=== PATIENT | male | born 1940 | race Caucasian/White ===

== ENCOUNTER → 2017-08-24 08:56 | Outpatient (CLI) | payer MEDICARE, SELFPAY ==
[2017-08-24 10:28] LABS: PSA,Total- Diagnostic 4.08 ng/mL (0.0-4.0)
== END ==
PROVIDERS: Family Provider Family Medicine; PCP Family Medicine; Visit Provider Nurse Practitioner Adult Health
DX: R97.20 Elevated prostate specific antigen [PSA] (principal)
CPT/HCPCS: 36415; 84153

== ENCOUNTER 2018-08-09 21:01 | Emergency (ER) | payer MEDICARE, SELFPAY ==
[2018-08-09 21:02] VITALS: BP 158/74; PULSE 78; RESP 16; TEMP 36.8; O2SAT 96; BMI 25.8
[2018-08-09 21:38] LABS: Absolute Lymphocyte Count 2.01 X10^3/ul (0.83-4.51); Absolute Neutrophil Count 2.6 X10^3/uL (2.0-7.7); Basophil# 0.03 X10^3/uL; Basophil% 0.5 % (0-1); Eosinophils% 1.7 % (0-5); Hematocrit 41.9 % (40-54); Lymphocyte # 2.01 X10^3/ul (4.0); Lymphocyte % 35.1 % (19-41); Mean Corp Hgb Conc 33.4 g/gl (32-36); Mean Corpuscular Hgb 29.7 pg (27.0-32.0); Mean Corpuscular Volume 88.8 fL (80-94); Mean Platelet Vol. 9.4 fl (6.2-12.0); Monocyte# 1.01 X10^3/uL; Monocyte% 17.7 % (0-10); Neutrophil # 2.57 X10^3/uL (2.7-7.7); Platelet Count 245 K/mm3 (150-450); RBC Distribution Width SD 42.3 fl (35.1-43.9); Red Blood Count 4.72 M/mm3 (4.6-6.2); White Blood Count 5.7 K/mm3 (4.4-11.0)
[2018-08-09 21:39] LABS: POSITIVE COUNT NO; POSITIVE DIFFERENTIAL NO; POSITIVE MORPHOLOGY NO
[2018-08-09 21:44] LABS: Partial Thromboplast Time 29.1 Seconds (24.1-36.2)
[2018-08-09 21:53] LABS: Anion Gap 6 (5-15); BUN 15 mg/dL (7-18); BUN/Creat Ratio 16.4 RATIO (10-20); Calcium,Total 8.4 mg/dL (8.5-10.1); Chloride 107 mmol/L (98-107); Creatinine, Serum 0.92 mg/dL (0.70-1.30); EST Glomerular Filtration Rate 85 mL/min (>60); Est Glom Filt Rate - Afr Amer 103 mL/min (>60); Estimated Creatinine Clearance 69.43 ml/min; Glucose 98 mg/dL (74-106); Potassium 3.8 mmol/L (3.5-5.1); Sodium Level 140 mmol/L (136-145)
[2018-08-09 22:20] LABS: Bacteria 0 SEEN /hpf (None Seen); Mucous, Urine 0 SEEN /hpf (<or=2+); Squamous Epithelial Cells - UA 0 SEEN /hpf (0-5)
[2018-08-09 22:38] LABS: Color, Urine Red (Yellow); Glucose, Dipstick Normal (Normal); Ketone-Dipstick Negative (Negative); Leukocyte Esterase-Dipstick Negative /ul (Negative); Nitrite-Dipstick Negative (Negative); Occult Blood-Urine 250 /ul (Negative); Protein-Dipstick 500 mg/dl (Negative); Urine Bilirubin Dipstick Negative (Negative); Urine Clarity Turbid (Clear); Urine Urobilinogen Normal (Normal)
[2018-08-09 22:53] LABS: White Blood Cells 25-50 SEEN /hpf (0-5)
[2018-08-09 22:54] LABS: Red Blood Cells-Urine > 100 SEEN /hpf (0-5)
[2018-08-09 23:26] VITALS: BP 153/104; PULSE 71; RESP 16; O2SAT 96
--- NOTE | 2018-08-10 01:02 | ED.VISSUMM ---
- ER Visit Summary Date of Service: 08/10/18 Chief Complaint: Blood in urine History of Present Illness: The patient is a 77 M with blood in his urine that has been going on for couple days. Worse today. Bright red blood and clots were noted. He believes he is retaining urine and has some lower abdominal pain. Denies any other symptoms. No GI symptoms. No fevers. He had these symptoms years ago and was told it was his prostate. He did have irrigation and the bleeding cleared. He used to see Dr. Arthur, but does not have a current urologist. He has a history of BPH and did have a TURP about 20 years ago. He denies blood thinner use. Physical Examination: Afebrile and vital signs unremarkable. Abdomen soft and nontender. Skin appears normal without pallor. Test Results: CBC normal. Metabolic panel normal. Coags normal. Urinalysis shows blood, 25-50 white cells and greater than 100 RBCs. Urine culture is pending. Emergency Department Course and Treatment: Three-way catheter was placed. He had continuous irrigation. He continued to pass blood and clots. Urology is not available at this facility today for consultation. I believe he needs to see a urologist tonight for continued irrigation and further care. I do not believe he is appropriate for outpatient management. At the time of this dictation, he is awaiting transfer to an appropriate facility. Treatment Plan: As above Disposition: Transfer Impression: 1. Hematuria 2. Acute urinary retention This note was generated with [employer] dictation software. It may contain incorrect words, spelling, and punctuation that were not noted in review of the chart prior to signing ED Disposition - Plan for ED Patient: Referrals: Volodymyr Salgado DO [Primary Care Provider] -
--- NOTE | 2018-08-10 01:05 | ED.DCSUM_ITS ---
- ER Visit Summary Date of Service: 08/10/18 Chief Complaint: Blood in urine History of Present Illness: The patient is a 77 M with blood in his urine that has been going on for couple days. Worse today. Bright red blood and clots were noted. He believes he is retaining urine and has some lower abdominal pain. Denies any other symptoms. No GI symptoms. No fevers. He had these symptoms years ago and was told it was his prostate. He did have irrigation and the bleeding cleared. He used to see Dr. Arthur, but does not have a current urologist. He has a history of BPH and did have a TURP about 20 years ago. He denies blood thinner use. Physical Examination: Afebrile and vital signs unremarkable. Abdomen soft and nontender. Skin appears normal without pallor. Test Results: CBC normal. Metabolic panel normal. Coags normal. Urinalysis shows blood, 25-50 white cells and greater than 100 RBCs. Urine culture is pending. Emergency Department Course and Treatment: Three-way catheter was placed. He h ad continuous irrigation. He continued to pass blood and clots. Urology is not available at this facility today for consultation. I believe he needs to see a urologist tonight for continued irrigation and further care. I do not believe he is appropriate for outpatient management. At the time of this dictation, he is awaiting transfer to an appropriate facility. Treatment Plan: As above Disposition: Transfer Impression: 1. Hematuria 2. Acute urinary retention This note was generated with [employer] dictation software. It may contain incorrect words, spelling, and punctuation that were not noted in review of the chart prior to signing ED Disposition - Plan for ED Patient: Referrals: Volodymyr Salgado DO [Primary Care Provider] -
[2018-08-10 02:42] VITALS: BP 161/98; PULSE 76; RESP 16; O2SAT 97
== END 2018-08-10 03:50 | disposition short-term general hospital (02) ==
PROVIDERS: Emergency Provider Emergency Medicine; Family Provider Family Medicine; PCP Family Medicine
DX: R31.9 Hematuria, unspecified (principal); N40.1 Benign prostatic hyperplasia with lower urinary tract symptoms; R33.8 Other retention of urine; R35.0 Frequency of micturition; R10.30 Lower abdominal pain, unspecified; Z79.899 Other long term (current) drug therapy
CPT/HCPCS: 80048; 81001; 85025; 85610; 85730; 87086; 99284; A4216

== ENCOUNTER → 2020-02-26 09:24 | Outpatient (CLI) | payer MEDICARE, SELFPAY ==
[2020-02-26 13:26] LABS: Anion Gap 4 (5-15); BUN 14 mg/dL (7-18); BUN/Creat Ratio 13.7 RATIO (10-20); Calcium,Total 9.4 mg/dL (8.5-10.1); Chloride 109 mmol/L (98-107); Cholesterol 230 mg/dL (200); Creatinine, Serum 1.02 mg/dL (0.70-1.30); EST Glomerular Filtration Rate 75 mL/min (>60); Est Glom Filt Rate - Afr Amer 91 mL/min (>60); Glucose 101 mg/dL (74-106); High Density Lipoprotein 48 mg/dL; Potassium 4.2 mmol/L (3.5-5.1); Sodium Level 140 mmol/L (136-145); Triglycerides 150 mg/dL; Very Low Density Lipoprotein 30 mg/dL (5-40)
[2020-02-26 17:12] LABS: PSA,Total- Diagnostic 3.49 ng/mL (0.0-4.0)
== END ==
PROVIDERS: PCP Student in an Organized Health Care Education/Training Program; Referring Provider Student in an Organized Health Care Education/Training Program; Visit Provider Student in an Organized Health Care Education/Training Program
DX: R97.20 Elevated prostate specific antigen [PSA] (principal); Z13.6 Encounter for screening for cardiovascular disorders
CPT/HCPCS: 36415; 80048; 80061; 84153; G0103

== ENCOUNTER 2020-03-24 20:08 | Emergency (ER) | payer MEDICARE, SELFPAY ==
[2020-03-24 20:09] VITALS: BP 177/96; PULSE 102; RESP 18; TEMP 35.3; O2SAT 98; BMI 27.1
--- NOTE | 2020-03-24 23:08 | ED.VIS.GEN ---
History of Present Illness Chief Complaint: Constipation Narrative: This patient is a 79-year-old male who presents with constipation and urinary retention. He had a small hard stool yesterday. He has felt like he needed to have a bowel movement today but was unable to go. He was also unable to urinate. Patient urinated after arrival here to the emergency department prior to my evaluation. He complains of some lower abdominal discomfort no pain. No fevers. No nausea or vomiting. No history of prior similar symptoms. Past Medical History - Allergies and Home Meds Allergies/Adverse Reactions: Allergies tetanus and diphtheria toxoids Allergy (Verified 08/09/18 21:05) Swelling Primary Care Physician: Darryl Mckee DO [Primary Care Provider] - Past Medical History: - - BPH Smoking Status: Former smoker Review of Systems All systems negative except as indicated General: Denies: Fever Eyes: Denies: Visual changes - bilaterally Cardiovascular: Denies: Chest pain Respiratory: Denies: Cough Gastrointestinal: Reports: Constipation. Denies: Nausea, Vomiting Musculoskeletal: Denies: Myalgias, Arthralgias Skin: Denies: Rash Neurological: Denies: Headache Physical Exam Vital Signs/Narrative: Vital Signs Temp Pulse Resp BP Pulse Ox 03/24/20 20:09 95.5 F L 102 H 18 177/96 H 98 Inital Vital Signs reviewed: Yes General: Well nourished Head: Normocephalic Eyes: EOMI ENT: Moist mucous membranes Neck: Supple Cardiovascular: Regular rate Respiratory: No distress Abdomen: Soft, Nontender, Nondistended Rectal: - - Patient has a large fecal impaction on digital rectal exam Skin: Normal color Neurological: Alert Psychological: Normal affect Diagnostic/Tx/Re-eval - Medical Decision Making A Urojet was used for comfort during manual disimpaction. Large amount of hard impacted stool was manually disimpacted. Patient was given an enema. He was advised to use a stool softener such as MiraLAX at home. He understands to return for new or worsening symptoms otherwise to follow-up with his primary care physician and he was discharged home. ED Disposition - Plan for ED Patient: Disposition: Home or Assisted Living Diagnosis: Fecal impaction Instructions: ED Fecal Impaction, Treated Referrals: Darryl Mckee DO [Primary Care Provider] - Additional Instructions: I would recommend that you start a stool softener such as MiraLAX.
[2020-03-24] MEDS: Lidocaine Jelly 2% 20 ML Syringe (URO-JET) 20 APPLIC TOPICAL (23:17)
[2020-03-24] MEDS: Fleet Enema 1 ML RECTAL (23:18)
== END 2020-03-25 00:07 | disposition home or self-care (01) ==
PROVIDERS: Emergency Provider Emergency Medicine; PCP Student in an Organized Health Care Education/Training Program
DX: K56.41 Fecal impaction (principal); N40.1 Benign prostatic hyperplasia with lower urinary tract symptoms; R33.8 Other retention of urine; Z87.891 Personal history of nicotine dependence
CPT/HCPCS: 99283

== ENCOUNTER 2020-06-11 09:40 | Emergency (ER) | payer MEDICARE, SELFPAY ==
[2020-06-11 09:41] VITALS: BP 182/80; PULSE 74; RESP 16; TEMP 35.7; O2SAT 98; BMI 26.4
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
== END 2020-06-11 10:29 | disposition home or self-care (01) ==
PROVIDERS: Emergency Provider Emergency Medicine; PCP Student in an Organized Health Care Education/Training Program
DX: S29.012A Strain of muscle and tendon of back wall of thorax, initial encounter (principal); V43.52XA Car driver injured in collision with other type car in traffic accident, initial encounter; Y93.9 Activity, unspecified; Y92.9 Unspecified place or not applicable; N40.0 Benign prostatic hyperplasia without lower urinary tract symptoms; Z79.899 Other long term (current) drug therapy; Z87.891 Personal history of nicotine dependence
CPT/HCPCS: 99282

== ENCOUNTER 2020-10-21 23:31 | Observation (INO) | payer MEDICARE, SELFPAY ==
[2020-10-21 23:32] VITALS: BP 161/90; PULSE 91; RESP 18; TEMP 36.7; O2SAT 97; BMI 27.3
[2020-10-22] VITALS (17 sets, daily range): BP systolic 92–169; BP diastolic 54–90; PULSE 70–91; RESP 16–18; TEMP 36.1–36.8; O2SAT 92–100; BMI 27.0
--- NOTE | 2020-10-22 | PROS_PTH ---
PATIENT: RONEN CHOW LOC: [facility] U#:[id number] AGE/SX: 80/M ROOM: [facility] RE10/22/[address]: Dr. Delbert Abrams DO : 1940 BED: 1 DIS: 10/23/2020 SPEC #: [id number] RECD: 10/22/20 14:01 STATUS: ELIZABETH BECK #: [id number] SHIVAM: 10/22/20 00:[address]: Quang Haynes DEPT: SURGICAL PATHOLOGY RECD BY: Kam Person ENTERED: 10/23/20 09:01 SP TYPE: TURP OTHR DR: MD Dr. Quang Mays MD Dr. Michael Halko, DO Dr. Mark Tereletsky, DO Tissues: Prostate, NOS Procedures: Surgery Specimen Level IV Comments: @ Ordering doctor for SUIV edited from to @ by DAWSON at 10/23/20 1002 @ Submitting doctor edited from to @ by DAWSON at 10/23/20 1002 HEADER OPERATION: Cysto, evacuation clots, TURP PRE-OP DIAGNOSIS: Urinary retention and hematuria TISSUE SUBMITTED: Prostate chips MICROSCOPIC DIAGNOSIS Prostate, transurethral resection: Benign nodular hyperplasia, glandular and stromal types. Chronic inflammation. AM:mars 10/27/2020 MICROSCOPIC DESCRIPTION Slides are reviewed. GROSS DESCRIPTION Received is one container labeled with the patient's name and designated prostate chips. The specimen consists of multiple irregular fragments of pink-bergman, rubbery, soft tissue mixed with blood clots that in aggregate weigh 42.7 gm and measure in aggregate 9 x 8 x 3 cm. The specimen predominantly consists of blood clots. Habilitation Assistant tissue is submitted in ten cassettes. Most of the bergman, indurated tissue is submitted. / SJ:mars 10/23/20 TC:3 CPT: 66237
--- NOTE | 2020-10-22 00:06 | ED.RN ---
2032, CALLED [facility] TO GENERATIONS. 0 CALLED TO CHECK STATUS FOR THAT TRANSPORT, WAS TOLD THE [facility]W FROM [facility] WILL TAKE IT. THAT CREW DEPARTED AT 2241 ON A THREE AND A HALF HOUR TRANSPORT
[2020-10-22 00:20] LABS: Mucous, Urine 0 SEEN /hpf (<or=2+); Squamous Epithelial Cells - UA 0 SEEN /hpf (0-5)
[2020-10-22 00:21] LABS: Absolute Lymphocyte Count 2.11 X10^3/uL (0.83-4.51); Absolute Neutrophil Count 3.2 X10^3/uL (2.0-7.7); Basophil# 0.04 X10^3/uL; Basophil% 0.6 % (0-1); Eosinophil# 0.12 X10^3/uL; Eosinophils% 1.8 % (0-5); Hematocrit 43.8 % (40-54); Hemoglobin 14.5 g/dL (13.0-16.5); Lymphocyte # 2.11 X10^3/ul (0.83-4.51); Lymphocyte % 32.5 % (19-41); Mean Corp Hgb Conc 33.1 g/dL (32-36); Mean Corpuscular Hgb 29.1 pg (27.0-32.0); Mean Corpuscular Volume 87.8 fL (80-94); Mean Platelet Vol. 9.8 fl (6.2-12.0); Monocyte# 1.04 X10^3/uL; NRBC Flagged by Analyzer 0 % (0-5); Neutrophil # 3.18 X10^3/uL (2.7-7.7); Neutrophil % 48.9 % (47-70); Platelet Count 220 K/mm3 (150-450); RBC Distribution Width CV 13.2 % (11.6-14.6); RBC Distribution Width SD 42.5 fl (35.1-43.9); Red Blood Count 4.99 M/mm3 (4.6-6.2); White Blood Count 6.5 K/mm3 (4.4-11.0)
[2020-10-22 00:28] LABS: Prothrombin Time (Protime)PT. 12.6 SECONDS (11.7-14.9)
[2020-10-22 00:29] LABS: Partial Thromboplast Time 27.7 Seconds (24.1-36.2)
[2020-10-22 00:34] LABS: Color, Urine Red (Yellow); Glucose, Dipstick 50 mg/dl (Normal); Ketone-Dipstick Negative (Negative); Leukocyte Esterase-Dipstick 25 /ul (Negative); Nitrite-Dipstick Negative (Negative); Occult Blood-Urine 250 /ul (Negative); Protein-Dipstick 500 mg/dl (Negative); Urine Bilirubin Dipstick Negative (Negative); Urine Clarity Turbid (Clear); Urine Urobilinogen Normal (Normal)
[2020-10-22 00:35] LABS: Red Blood Cells-Urine > 100 SEEN /hpf (0-5)
[2020-10-22 00:36] LABS: Anion Gap 7 (5-15); BUN 17 mg/dL (7-18); BUN/Creat Ratio 19.4 RATIO (10-20); Bacteria 2+ /hpf (None Seen); Calcium,Total 8.5 mg/dL (8.5-10.1); Chloride 107 mmol/L (98-107); Creatinine, Serum 0.88 mg/dL (0.70-1.30); EST Glomerular Filtration Rate 89 mL/min (>60); Est Glom Filt Rate - Afr Amer 108 mL/min (>60); Estimated Creatinine Clearance 66.95 ml/min; Glucose 101 mg/dL (74-106); Potassium 3.8 mmol/L (3.5-5.1); Sodium Level 139 mmol/L (136-145); White Blood Cells 5-10 SEEN /hpf (0-5)
--- NOTE | 2020-10-22 01:10 | HP.PCM.HOS_ITS ---
HPI - General General Date of Admission: 10/22/20 Date of Service: 10/22/20 Chief Complaint: Hematuria, urinary retention. HPI Narrative The patient is an 80 y/o M w/ PMHx: HTN not on regimen, BPH s/p TURP, History of prior Hematuria requiring [facility] transfer to Tertiary facility at that time secondary to unavailability of Urology previously following outpatient with Dr. Arthur who now presents with similar history to the [facility] ED on 10/22/20 with recurrent hematuria, clots and urinary retention since the evening prior, ~ 24 hours. He noted during prior presentation he had continuous irrigation and the bleeding resolved at that time with follow-up with Dr. Haynes. He notes severe pain 6-10/31 prior to franco being placed in the ED but noted immediate relief following with pain prior to this sharp. Work-up in the ED included T 98.1, hea rt rate 91, BP 161/90, respiratory rate 18, 97% on room air, CBC with the BC 6.5, hemoglobin 14.5, platelet 220 without marked shift, unremarkable coags, BMP unremarkable with BUN/creatinine 17/0.88, urinalysis noted to be turbid, specific raphe 1.010, protein 500, glucose 50, negative ketone, 250 occult blood, negative nitrite, 25 leukocyte esterase, urine RBCs greater than 100, urine WBCs 50-10 with 2+ urine bacteria with urine culture pending per ED. prior evaluation in the ED 08/09/2018 with similar presentation with hematuria at that time had urine culture with no growth at that time. In the ED Franco catheter with 3 three-way placed with continuous bladder irrigation. [facility] Medical History (Updated 10/22/20 @ 01:[address] Katie Wang MD) Back strain BPH (benign prostatic hyperplasia) History of hematuria Prostate disorder Home Medications NK 10/22/20 [History Last Taken Unknown] Allergy/AdvReac Type Severity Reaction Status Date / Time tetanus and diphtheria Allergy Swelling Verified 10/21/20 23:34 toxoids other (No marked maternal/paternal family hx including HD, DM, CA. Father passed from VTE after accident.) Surgical History (Updated 10/22/20 @ 01:[address] Katie Wang MD) History of back surgery S/P TURP Social History (Updated 10/22/20 @ 01:[address] Katie Wang MD) household members: spouse Smoking Status: Never smoker alcohol intake: current details: Rare EtOH intake. substance use type: does not use ROS ROS Narrative Admission Review of Systems: CONSTITUTIONAL: No weight loss, fever, chills, weakness, + fatigue. HEENT: Eyes: No visual loss, blurred vision, double vision or yellow sclerae. Ears, Nose, Throat: No hearing loss, sneezing, congestion, runny nose or sore throat. SKIN: No rash or itching, lesions, wounds. CARDIOVASCULAR: No chest pain, chest pressure or chest discomfort, palpitations, edema, orthopnea, syncopal events. RESPIRATORY: No shortness of breath, cough or sputum, wheezing, hemoptysis. GASTROINTESTINAL: No anorexia, nausea, vomiting or diarrhea, abdominal pain, melena, BRBPR. GENITOURINARY: + Hematuria, urinary frequency, retention, bladder spasms. NEUROLOGICAL: No headache, dizziness, syncope, paralysis, ataxia, numbness or tingling in the extremities, focal weakness, change in bowel or bladder control, seizure. MUSCULOSKELETAL: No muscle, back pain, joint pain or stiffness. HEMATOLOGIC: + anemia, bleeding or bruising. LYMPHATICS: No enlarged nodes. No history of splenectomy. PSYCHIATRIC: No history of depression or anxiety. ENDOCRINOLOGIC: No reports of sweating, cold or heat intolerance. No polyuria or polydipsia. ALLERGIES: No history of asthma, hives, eczema or rhinitis. Vital Signs Vital Signs Vital Signs: 10/21/20 23:32 10/22/20 00:33 Temperature 98.1 F 98.1 F Temperature Source Temporal Temporal Pulse Rate 91 91 Respiratory Rate 18 18 Blood Pressure 161/90 H 161/90 H Blood Pressure Mean 113 113 Pulse Ox 97 97 Oxygen Delivery Method Room Air Room Air Weight Weight: 185 lb Body Mass Index (BMI) 27.3 Physical Exam Narrative Physical Examination: General: Awake, alert, oriented x 3 and cooperative, seated upright in the ED bed in no apparent distress, status post Franco placement, adelaide blood noted, notes pain resolved following placement. Skin: Normal color, normal turgor, no icterus, no cyanosis. HEENT: AT/NC, EOMI, PERRLA, mildly dry MM, no carotid bruits or JVD noted. Lungs: CTA bilaterally, moderate effort, mild decrease BL bases, no rales, ronchi or wheezing. Heart: Regular rate and rhythm; no gallop, rub audible, + SM. Abdomen: Soft, some suprapubic discomfort but notes improved since that Franco placement otherwise abdomen NTTP, ND, normal BS, no HSM. Extremities: No cyanosis, clubbing, or edema. Neurological: Patient awake, alert, oriented as noted, cognitive function intact; pupils equally reactive to light and accommodation, cranial nerves II- XII grossly normal, moving all 4 extremities, no focal deficits, strength mildly global decrease secondary to acute presentation. Psychiatric: Affect appears mildly fatigued otherwise normal, notes feeling improved, no acute evidence of depressive or anxiety feelings. Results Lab / Micro Data Result Diagrams: 10/22/20 00:15 10/22/20 00:15 Labs: Laboratory Results - last 24 hr 10/22/20 10/22/20 10/22/20 00:15 00:15 00:15 WBC 6.5 RBC 4.99 Hgb 14.5 Hct 43.8 MCV 87.8 MCH 29.1 MCHC 33.1 RDW Std Deviation 42.5 RDW Coeff of Klarissa 13.2 Plt Count 220 MPV 9.8 Immature Gran % (Auto) 0.200 Neut % (Auto) 48.9 Lymph % (Auto) 32.5 [place] % (Auto) 16.0 H Eos % (Auto) 1.8 Baso % (Auto) 0.6 Absolute Neuts (auto) 3.2 Absolute Lymphs (auto) 2.11 Nucleated RBC % 0 PT 12.6 INR 1.0 APTT 27.7 Sodium 139 Potassium 3.8 Chloride 107 Carbon Dioxide 25.0 Anion Gap 7 BUN 17 Creatinine 0.88 Estim Creat Clear Calc 66.95 Est GFR (MDRD) Af Amer 108 Est GFR (MDRD) Non-Af 89 BUN/Creatinine Ratio 19.4 Glucose 101 Calcium 8.5 Urine Color Urine Clarity Urine pH Ur Specific [place] Urine Protein Urine Glucose (UA) Urine Ketones Urine Occult Blood Urine Nitrite Urine Bilirubin Urine Urobilinogen Ur Leukocyte Esterase Urine RBC Urine WBC Ur Squamous Epith Cells Urine Bacteria Urine Mucus 10/22/20 00:15 WBC RBC Hgb Hct MCV MCH MCHC RDW Std Deviation RDW Coeff of Klarissa Plt Count MPV Immature Gran % (Auto) Neut % (Auto) Lymph % (Auto) [place] % (Auto) Eos % (Auto) Baso % (Auto) Absolute Neuts (auto) Absolute Lymphs (auto) Nucleated RBC % PT INR APTT Sodium Potassium Chloride Carbon Dioxide Anion Gap BUN Creatinine Estim Creat Clear Calc Est GFR (MDRD) Af Amer Est GFR (MDRD) Non-Af BUN/Creatinine Ratio Glucose Calcium Urine Color Red Urine Clarity Turbid Urine pH 7.0 Ur Specific [place] 1.010 Urine Protein 500 H Urine Glucose (UA) 50 H Urine Ketones Negative Urine Occult Blood 250 H Urine Nitrite Negative Urine Bilirubin Negative Urine Urobilinogen Normal Ur Leukocyte Esterase 25 H Urine RBC > 100 SEEN Urine WBC 5-10 SEEN Ur Squamous Epith Cells 0 SEEN Urine Bacteria 2+ Urine Mucus 0 SEEN Assessment & Plan Assessment/Plan (1) Hematuria: QUALIFIERS: Hematuria type: gross Qualified Code(s): R31.0 - Gross hematuria (2) Urinary retention: PLAN: The patient is an 80 y/o M w/ PMHx: BPH s/p TURP, History of prior Hematuria requiring [facility] transfer to Tertiary facility at that time secondary to unavailability of Urology previously following outpatient with Dr. Arthur who now presents with similar history to the [facility] ED on 10/22/20 with recurrent hematuria, clots and urinary retention since the evening prior, ~ 24 hours. 1. Acute hematuria, unclear etiology with questionable urinary tract infection, lower suspicion: We will admit to medical surgical floor, continue three-way Franco catheter with continuous bladder irrigation, continue urology consultation, UA upon ED evaluation mildly remarkable remarkable with pending UCx, therefore will initiate and continue IV Rocephin pending this culture, de- escalate if unremarkable, n.p.o. status for possible intervention per urology. 2. Elevated BP without HTN history: Patient with noted trending of blood pressures during prior admissions, notes never diagnosed with HTN and normal at visits; however, during acute visits noted to have constantly been elevated above goal. Do suspect possible underlying undiagnosed hypertension, will continue monitor and if blood pressure remains elevated following #1 treatment would plan initiation of oral regimen, as needed IV hydralazine in interim. 3. BPH: s/p TURP, will maintain on flomax. 4. DVT prophylaxis: SCDs, defer chemoprophylaxis given acute presentation #1. Charges/Coding Visit Charges OBSV E&M: 67495 Initial observation care L3
--- NOTE | 2020-10-22 01:11 | EDS_ITS ---
HPI History of Present Illness Chief Complaint: Complaint Informant: patient Onset/Context/Timing Onset: Today and Yesterday Quality: Bright red blood Location: With urination Current Severity: Moderate Worsened by: Nothing Relieved by: Nothing Associated Symptoms Associated Symptoms: Clots Narrative Narrative: Patient has a remote history of TURP. He has had intermittent hematuria in the past. According the patient it is from straining. He was recently admitted to the hospital for this. He was transferred to [facility] because there were no urologist available at this facility. He says he was admitted and had bladder irrigation and the bleeding stopped. He was sent home. This episode started last night and it was fairly mild. He came in this evening because the bleeding worsened and he was passing clots. Prior similar symptoms: Yes Recent Illness/Hospitalization: No PFSH PFSH Medical History Back strain BPH (benign prostatic hyperplasia) History of hematuria HTN (hypertension) Prostate disorder Home Medications NK 10/22/20 [History Last Taken Unknown] Allergy/AdvReac Type Severity Reaction Status Date / Time tetanus and diphtheria Allergy Swelling Verified 10/21/20 23:34 toxoids Surgical History S/P TURP Social History Smoking Status: Never smoker ROS ROS ED Constitutional Constitutional ED: Denies chills or fever(s) Eyes Eyes: Denies change in vision ENT ENT ED: Denies ear pain Cardiovascular Cardiovascular: Denies chest pain Respiratory/Chest Respiratory/Chest: Denies dyspnea Gastrointestinal Gastrointestinal: Reports abdominal pain; Denies diarrhea, nausea or vomiting Genitourinary Genitourinary ED: Reports hematuria; Denies dysuria or urinary frequency Musculoskeletal Musculoskeletal: Denies myalgias Integumentary Denies rash Neurologic Neurologic: Denies headache(s) Psychiatric Psychiatric: Denies depression Endocrine Endocrinology: Denies polyuria Allergic/Immunologic Allergic/Immunologic ED: Denies urticaria EXAM Physical Exam Const Vital Signs: 10/21/20 23:32 10/22/20 00:33 Temperature 98.1 F 98.1 F Temperature Source Temporal Temporal Pulse Rate 91 91 Respiratory Rate 18 18 Blood Pressure 161/90 H 161/90 H Blood Pressure Mean 113 113 Pulse Ox 97 97 Oxygen Delivery Method Room Air Room Air Positive well nourished HEENT Negative for trauma or tenderness Eyes EOMs intact bilaterally Neck supple Resp normal respiratory effort Cardio regular rate GI normal to inspection, nondistended, normoactive bowel sounds and non-tender Palpation: soft Back/Spine no CVA tenderness Extremity normal to inspection Neuro oriented x3 Sensorium / Orientation: alert Psych mental status grossly normal MDM MDM MDM Narrative Medical decision making narrative: Patient had bladder irrigation. He had a post void residual of 500 mL. He continued to pass gross blood and clots. Patient is stable on reevaluation. Hemoglobin 14.5. I do not believe he has an infection or kidney stone. No imaging was obtained emergently. I called urology. Will do continuous irrigation and admit to medicine. Lab Data Attestation: I reviewed the patient's lab results. Labs: Laboratory Results - last 24 hr 10/22/20 10/22/20 10/22/20 00:15 00:15 00:15 WBC 6.5 RBC 4.99 Hgb 14.5 Hct 43.8 MCV 87.8 MCH 29.1 MCHC 33.1 RDW Std Deviation 42.5 RDW Coeff of Klarissa 13.2 Plt Count 220 MPV 9.8 Immature Gran % (Auto) 0.200 Neut % (Auto) 48.9 Lymph % (Auto) 32.5 [place] % (Auto) 16.0 H Eos % (Auto) 1.8 Baso % (Auto) 0.6 Absolute Neuts (auto) 3.2 Absolute Lymphs (auto) 2.11 Nucleated RBC % 0 PT 12.6 INR 1.0 APTT 27.7 Sodium 139 Potassium 3.8 Chloride 107 Carbon Dioxide 25.0 Anion Gap 7 BUN 17 Creatinine 0.88 Estim Creat Clear Calc 66.95 Est GFR (MDRD) Af Amer 108 Est GFR (MDRD) Non-Af 89 BUN/Creatinine Ratio 19.4 Glucose 101 Calcium 8.5 Urine Color Urine Clarity Urine pH Ur Specific [place] Urine Protein Urine Glucose (UA) Urine Ketones Urine Occult Blood Urine Nitrite Urine Bilirubin Urine Urobilinogen Ur Leukocyte Esterase Urine RBC Urine WBC Ur Squamous Epith Cells Urine Bacteria Urine Mucus 10/22/20 00:15 WBC RBC Hgb Hct MCV MCH MCHC RDW Std Deviation RDW Coeff of Klarissa Plt Count MPV Immature Gran % (Auto) Neut % (Auto) Lymph % (Auto) [place] % (Auto) Eos % (Auto) Baso % (Auto) Absolute Neuts (auto) Absolute Lymphs (auto) Nucleated RBC % PT INR APTT Sodium Potassium Chloride Carbon Dioxide Anion Gap BUN Creatinine Estim Creat Clear Calc Est GFR (MDRD) Af Amer Est GFR (MDRD) Non-Af BUN/Creatinine Ratio Glucose Calcium Urine Color Red Urine Clarity Turbid Urine pH 7.0 Ur Specific [place] 1.010 Urine Protein 500 H Urine Glucose (UA) 50 H Urine Ketones Negative Urine Occult Blood 250 H Urine Nitrite Negative Urine Bilirubin Negative Urine Urobilinogen Normal Ur Leukocyte Esterase 25 H Urine RBC > 100 SEEN Urine WBC 5-10 SEEN Ur Squamous Epith Cells 0 SEEN Urine Bacteria 2+ Urine Mucus 0 SEEN Discharge Plan Triage Chief Complaint: Complaint ED Provider: Lorenzo Gonsales Dx/Rx/DC Orders Clinical Impression: Hematuria, Urinary retention Prescriptions: No Action NK RF: 0 Primary Care Provider: Darryl Mckee Referrals: Darryl Mckee DO [Primary Care Provider] -
--- NOTE | 2020-10-22 01:40 | ED.RN ---
STARTED CONTINUOUS BLADDER IRRIGATION. TITRATED TO LIGHT PINK. PT TOLERATED PROCEDURE WELL.
--- NOTE | 2020-10-22 02:00 | NURSING ---
when pt arrived from ED- catheter not flowing. manually irrigated with sterile water- large amount of clots noted. since manually irrigating, CBI has been running well- arreola red.
[2020-10-22] MEDS: 0.9% Normal Saline 1,000 ML 100 ML IV ×3 (02:32→20:31)
[2020-10-22] MEDS: 0.9% Saline Lock 10 ML Syringe IV (02:32)
[2020-10-22] MEDS: Tamsulosin HCl 0.4 MG Capsule PO ×3 (02:32→20:59)
[2020-10-22] MEDS: Ondansetron 4 MG/2 ML Vial IV (04:58)
[2020-10-22 05:11] LABS: Bedside Glucose 136 mg/dL (70-110)
--- NOTE | 2020-10-22 05:15 | ED.RN ---
RN at bedside and pt stated he felt nauseated and needed to sit up. PRN zofran given. BP with a large decrease- see trends. pt diaphoretic. glucose checked and 136. O2 sats low 90s, placed on 2L NC. lowered head of bed. Then pt became more alert. explained situation. pt talkative now. placed on step down monitor for BP monitoring
[2020-10-22 06:06] LABS: Absolute Lymphocyte Count 1.55 X10^3/uL (0.83-4.51); Absolute Neutrophil Count 3.6 X10^3/uL (2.0-7.7); Basophil# 0.03 X10^3/uL; Basophil% 0.5 % (0-1); Eosinophil# 0.07 X10^3/uL; Eosinophils% 1.1 % (0-5); Hematocrit 38.3 % (40-54); Hemoglobin 12.4 g/dL (13.0-16.5); Lymphocyte # 1.55 X10^3/ul (0.83-4.51); Lymphocyte % 25.5 % (19-41); Mean Corp Hgb Conc 32.4 g/dL (32-36); Mean Corpuscular Volume 89.5 fL (80-94); Monocyte# 0.81 X10^3/uL; Monocyte% 13.3 % (0-10); NRBC Flagged by Analyzer 0 % (0-5); Neutrophil # 3.62 X10^3/uL (2.7-7.7); Neutrophil % 59.4 % (47-70); Platelet Count 184 K/mm3 (150-450); RBC Distribution Width CV 13.1 % (11.6-14.6); RBC Distribution Width SD 42.8 fl (35.1-43.9); Red Blood Count 4.28 M/mm3 (4.6-6.2); White Blood Count 6.1 K/mm3 (4.4-11.0)
[2020-10-22 06:45] LABS: ALB/GLOB Ratio 1.1 RATIO (0.9-2.4); AST(SGOT) 17 U/L (15-37); Alanine Aminotransfer ALT/SGPT 20 U/L (16-61); Albumin, Serum 3.1 g/dL (3.2-5.0); Alkaline Phosphatase 80 U/L (45-117); Anion Gap 7 (5-15); BUN 14 mg/dL (7-18); BUN/Creat Ratio 16.4 RATIO (10-20); Calcium,Total 7.9 mg/dL (8.5-10.1); Chloride 110 mmol/L (98-107); Creatinine, Serum 0.85 mg/dL (0.70-1.30); EST Glomerular Filtration Rate 92 mL/min (>60); Est Glom Filt Rate - Afr Amer 111 mL/min (>60); Estimated Creatinine Clearance 69.31 ml/min; Globulin 2.8 g/dL (2.2-4.2); Glucose 118 mg/dL (74-106); Potassium 3.8 mmol/L (3.5-5.1); Protein, Total 5.9 g/dL (6.4-8.2); Sodium Level 141 mmol/L (136-145)
--- NOTE | 2020-10-22 07:48 | PCM.CONS.U ---
Assessment & Plan Assessment/Plan (1) Urinary retention: (2) Hematuria: QUALIFIERS: Hematuria type: gross Qualified Code(s): R31.0 - Gross hematuria PLAN: Plan to proceed with a transurethral resection of the prostate today n.p.o. for surgery. HPI Consult Data Date of Consult: 10/22/20 HPI Narrative HPI Narrative: RONEN CHOW, is a 80 M who presents with significant bleeding from his prostate he does have a history of a transurethral resection of the prostate but this was a long long time ago a he was transferred to an outside hospitalnd last time he had significant bleeding but no surgical intervention was done. States that every time he does some heavy lifting etc. 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 [facility] Medical History Back strain BPH (benign prostatic hyperplasia) History of hematuria Prostate disorder Home Medications NK 10/22/20 [History Last Taken Unknown] Allergy/AdvReac Type Severity Reaction Status Date / Time tetanus and diphtheria Allergy Swelling Verified 10/21/20 23:34 toxoids Surgical History History of back surgery S/P TURP Social History (Updated 10/22/20 @ 01:[address] Katie Wang MD) household members: spouse Smoking Status: Never smoker alcohol intake: current details: Rare EtOH intake. substance use type: does not use ROS Constitutional Constitutional: Denies chills, fever(s) or malaise Eyes Eyes: Denies blurry vision or change in vision ENT HEENT: Reports none Cardiovascular Cardiovascular: Denies chest pain or palpitations Respiratory/Chest Respiratory/Chest: Denies cough or shortness of breath with exertion Gastrointestinal Gastrointestinal: Denies abdominal pain, constipation or diarrhea Musculoskeletal Musculoskeletal: Denies back pain, joint stiffness or joint swelling Integumentary Integumentary: Denies dry skin, jaundice, lesions or rash Neurologic Neurologic: Denies confusion, syncope or weakness Psychiatric Psychiatric: Reports none; Denies anxiety or depression Endocrine Endocrinology: Denies excessive sweating, fatigue or flushing Hematologic/Lymphatic Hematologic/Lymphatic: Denies anemia, easy bleeding or easy bruising Physical Exam Const alert and oriented x3 General Appearance: cooperative HEENT normocephalic, head/scalp atraumatic, EAC's normal and TM's normal bilaterally Eyes PERRL and EOMs intact bilaterally Pupil: sluggish Neck no lymphadenopathy, supple and no JVD General: trachea midline Lymph Lymphatic: no lymphadenopathy noted, lymphedema and lymphadenopathy Resp normal respiratory effort, normal air movement and clear to auscultation bilaterally Cardio regular rate, regular rhythm and peripheral pulses 2+ throughout GI soft to palpation, non-tender and non-distended Extremity normal capillary refill and no clubbing, cyanosis or edema General Extremity: no tenderness to palpation of joints or extremities Skin no rashes or lesions noted General Skin Exam: turgor normal Lesions: no lesions Rashes: no rashes Neuro CN's II-XII intact bilaterally Speech: speech normal Motor Exam: strength 5/5 throughout; Negative for general weakness Psych thought process normal, cooperative and affect normal Appearance: appropriate Lab / Micro Data Result Diagrams: 10/22/20 05:40 10/22/20 05:40 Labs: Laboratory Results - last 24 hr 10/22/20 10/22/20 10/22/20 00:15 00:15 00:15 WBC 6.5 RBC 4.99 Hgb 14.5 Hct 43.8 MCV 87.8 MCH 29.1 MCHC 33.1 RDW Std Deviation 42.5 RDW Coeff of Klarissa 13.2 Plt Count 220 MPV 9.8 Immature Gran % (Auto) 0.200 Neut % (Auto) 48.9 Lymph % (Auto) 32.5 [place] % (Auto) 16.0 H Eos % (Auto) 1.8 Baso % (Auto) 0.6 Absolute Neuts (auto) 3.2 Absolute Lymphs (auto) 2.11 Nucleated RBC % 0 PT 12.6 INR 1.0 APTT 27.7 Sodium 139 Potassium 3.8 Chloride 107 Carbon Dioxide 25.0 Anion Gap 7 BUN 17 Creatinine 0.88 Estim Creat Clear Calc 66.95 Est GFR (MDRD) Af Amer 108 Est GFR (MDRD) Non-Af 89 BUN/Creatinine Ratio 19.4 Glucose 101 Calcium 8.5 Total Bilirubin AST ALT Alkaline Phosphatase Total Protein Albumin Globulin Albumin/Globulin Ratio Urine Color Urine Clarity Urine pH Ur Specific [place] Urine Protein Urine Glucose (UA) Urine Ketones Urine Occult Blood Urine Nitrite Urine Bilirubin Urine Urobilinogen Ur Leukocyte Esterase Urine RBC Urine WBC Ur Squamous Epith Cells Urine Bacteria Urine Mucus POC Glucose 10/22/20 10/22/20 10/22/20 00:15 05:05 05:40 WBC 6.1 RBC 4.28 L Hgb 12.4 L Hct 38.3 L MCV 89.5 MCH 29.0 MCHC 32.4 RDW Std Deviation 42.8 RDW Coeff of Klarissa 13.1 Plt Count 184 MPV 10.0 Immature Gran % (Auto) 0.200 Neut % (Auto) 59.4 Lymph % (Auto) 25.5 [place] % (Auto) 13.3 H Eos % (Auto) 1.1 Baso % (Auto) 0.5 Absolute Neuts (auto) 3.6 Absolute Lymphs (auto) 1.55 Nucleated RBC % 0 PT INR APTT Sodium Potassium Chloride Carbon Dioxide Anion Gap BUN Creatinine Estim Creat Clear Calc Est GFR (MDRD) Af Amer Est GFR (MDRD) Non-Af BUN/Creatinine Ratio Glucose Calcium Total Bilirubin AST ALT Alkaline Phosphatase Total Protein Albumin Globulin Albumin/Globulin Ratio Urine Color Red Urine Clarity Turbid Urine pH 7.0 Ur Specific [place] 1.010 Urine Protein 500 H Urine Glucose (UA) 50 H Urine Ketones Negative Urine Occult Blood 250 H Urine Nitrite Negative Urine Bilirubin Negative Urine Urobilinogen Normal Ur Leukocyte Esterase 25 H Urine RBC > 100 SEEN Urine WBC 5-10 SEEN Ur Squamous Epith Cells 0 SEEN Urine Bacteria 2+ Urine Mucus 0 SEEN POC Glucose 136 H 10/22/20 05:40 WBC RBC Hgb Hct MCV MCH MCHC RDW Std Deviation RDW Coeff of Klarissa Plt Count MPV Immature Gran % (Auto) Neut % (Auto) Lymph % (Auto) [place] % (Auto) Eos % (Auto) Baso % (Auto) Absolute Neuts (auto) Absolute Lymphs (auto) Nucleated RBC % PT INR APTT Sodium 141 Potassium 3.8 Chloride 110 H Carbon Dioxide 24.0 Anion Gap 7 BUN 14 Creatinine 0.85 Estim Creat Clear Calc 69.31 Est GFR (MDRD) Af Amer 111 Est GFR (MDRD) Non-Af 92 BUN/Creatinine Ratio 16.4 Glucose 118 H Calcium 7.9 L Total Bilirubin 0.30 AST 17 ALT 20 Alkaline Phosphatase 80 Total Protein 5.9 L Albumin 3.1 L Globulin 2.8 Albumin/Globulin Ratio 1.1 Urine Color Urine Clarity Urine pH Ur Specific [place] Urine Protein Urine Glucose (UA) Urine Ketones Urine Occult Blood Urine Nitrite Urine Bilirubin Urine Urobilinogen Ur Leukocyte Esterase Urine RBC Urine WBC Ur Squamous Epith Cells Urine Bacteria Urine Mucus POC Glucose
[2020-10-22] MEDS: Ceftriaxone 1 GM/50 ML BAG IV (09:11)
--- NOTE | 2020-10-22 13:13 | PCM.OPRPT ---
Report of Operation Date of Procedure: 10/22/20 Pre-Operative Diagnosis: BPH with obstruction retention urine gross hematuria Post-Operative Diagnosis: Same Surgery/Procedure Performed:: Transurethral section of prostate Description of Surgical Findings:: In the preoperative setting I discussed with the patient how the surgery would be done with expect afterwards. We discussed how a prostate resection is done and we discussed the risk of the surgery including, bleeding, infection, retrograde ejaculation, changes with ejaculation or intercourse,. We discussed the possibility that the resection of the prostate may not alleviate his urinary symptoms. We discussed the small risk of developing scar tissue along the urethral channel and strictures. We also discussed the chance of the prostate could grow back and he may need further surgery or treatment in the future for prostate problems. Patient was taken back to the operating room, timeout procedure was performed, he was identified and marked and placed on the operating room table. He underwent general anesthesia. He was placed in dorsolithotomy position. Penis and testicles were prepped and draped in usual sterile fashion. Went into the bladder using the visual obturator with a resectoscope. Once inside the bladder identified the right and left ureteral orifice. I then identified the prostate and the anatomy of the prostate. I marked out the area of the sphincter and the verumontanum was identified. I then proceeded with the prostate resection first resected the median lobe. And then resected the right lobe of the prostate. Then to resect the left lobe of the prostate. I then resected the apical tissue of the prostate. Made sure that there was no injury to the sphincter or the verumontanum was still intact. At the end of the resection all the chips were Ellik out of the bladder. I then identified the left and right ureteral orifice and these were confirmed to be in good position and effluxing and not injured. The resectoscope was removed, a 22 [place] catheter was placed into the bladder on continuous irrigation. And the urine was fairly light pink color and draining normally. He was taken back to the PACU in good condition. Surgeon: Quang Haynes Type of Anesthesia: General Drains: 22 Palau[place] three-way catheter Admit VTE Documentation VTE Present on Admission: No VTE Mechan Device Prophylaxis: SCD's
--- NOTE | 2020-10-22 13:46 | CPS ---
started by nursing
[2020-10-22] MEDS: Acetaminophen 325 MG Tablet 650 MG PO (14:27)
[2020-10-22] MEDS: oxyCODONE 5 MG Tablet PO (15:11)
--- NOTE | 2020-10-22 17:08 | PCM.HOSP.N ---
Hospitalist Note Patient was seen and examined today, he underwent a transurethral resection of the prostate today, postop patient does not complain of any chest pain or shortness of breath, lungs are clear, heart rate and rhythm is regular, patient is alert and oriented and does not appear in any distress. We will continue with present medical care.
[2020-10-23 02:45] VITALS: BP 123/62; PULSE 82; RESP 18; TEMP 36.8; O2SAT 95
[2020-10-23] MEDS: 0.9% Normal Saline 1,000 ML 100 ML IV (02:52)
[2020-10-23 06:03] VITALS: BP 119/60; PULSE 74; RESP 18; TEMP 36.6; O2SAT 93
[2020-10-23 07:45] VITALS: O2SAT 93
[2020-10-23 08:54] VITALS: BP 130/66; PULSE 87; RESP 18; TEMP 37.4; O2SAT 94
[2020-10-23] MEDS: Ceftriaxone 1 GM/50 ML BAG IV (09:06)
[2020-10-23] MEDS: Tamsulosin HCl 0.4 MG Capsule PO (09:06)
--- NOTE | 2020-10-23 10:22 | CASEMGMT ---
This RN CM to room with MOSES form, explanation done-pt voices understanding, and signs MOSES form. Pt has copy of MCR IP vs OBS booklet at bedside. Original to chart and copy to pt. Pt awaiting discharge. SStaten RN CM
--- NOTE | 2020-10-23 10:45 | PCM.DC ---
Discharge Instructions Diet Discharge Diet: No restrictions Activity Discharge Activity: Return to Normal Activity Weight Bearing Status: Full weight bearing Follow Up Care Test Results: Test results from this visit will be discussed in further detail at your follow-up appointment, if applicable. Discharge Plan Admission Admit Date/Time: 10/22/20 01:09 Primary Reason for Your Visit: blood in urine Attending Provider: Delbert Abrams Primary Care Provider: Darryl Mckee Consulting Providers: Quang Haynes Discharge Orders/Prescriptions Prescriptions: New ciprofloxacin HCl [Cipro] 500 mg tablet 500 mg PO BID Qty: 10 RF: 0 Referrals / Follow Up: Quang Haynes MD [STAFF PHYSICIAN] - Within 2 Weeks Darryl Mckee DO [Primary Care Provider] - Within 2 Weeks Disposition Disposition (needs filled in before D/C Order can be placed): Home, Self Care
[2020-10-23 12:25] VITALS: BP 136/70; PULSE 80; RESP 18; TEMP 36.9; O2SAT 98
--- NOTE | 2020-10-23 19:44 | DS.PCM_ITS ---
Providers Date of Admission: 10/22/20 Date of Discharge: 10/23/20 Primary Care Physician: Dr. Darryl Mckee, DO Consultations 10/22/20 02:14 Consult: Urology Routine Consulting Provider: Quang Haynes Reason for Consult: Hematuria EMERGENT Consult: No MD Notified: Yes Date Notified: 10/22/20 Time Notified: 01:09 Method of Notification: called per ED. Reason For Visit: HEMATURIA, ? UTI Diagnosis Discharge Diagnosis (1) Urinary retention: Status: Acute Code(s): R33.9 - Retention of urine, unspecified (2) Hematuria: Status: Acute Code(s): R31.9 - Hematuria, unspecified Qualifiers: Hematuria type: gross Qualified Code(s): R31.0 - Gross hematuria Plan: Discharge diagnosis: #1 hematuria secondary to BPH #2 urinary retention secondary to BPH Medications at Discharge Home Medications ciprofloxacin HCl [Cipro] 500 mg PO BID #10 tab 10/23/20 Hospital Course Procedures - (Transurethral resection of the prostate) Summary of Care Provided Minutes Spent on Discharge: 31 Hospital Course: This 80-year-old white male was seen in the emergency room at [facility] with chief complaint of hematuria, lab work revealed over 100 RBCs in the patient's urine, patient's hemoglobin was normal. 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 Patient did well postop and there were no untoward complications from his surgery. On 10/23/2020, patient's Rodriguez was removed and he was able to void without difficulty. On 10/23/2020: Patient was seen and examined: On examination he appeared in good health and spirits. Vital signs as documented. Skin warm and dry and without overt rashes. Neck without JVD, neck was supple, trachea midline, thyroid was normal. Lungs clear bilaterally, normal air movement was noted. Heart exam notable for regular rhythm, normal sounds and absence of murmurs, rubs or gallops. Abdomen unremarkable and without evidence of organomegaly, masses, or a bdominal aortic enlargement. Bowel sounds are present, abdomen is not distended. Extremities nonedematous, no cyanosis was noted, no clubbing was noted. Neuro: Cranial nerves II through XII are grossly intact, no focal motor deficits were noted, sensation to light touch and pinprick intact, motor exam 5/5 throughout. Psych: Patient is alert and oriented x3, he does not appear anxious or depressed, he does not appear agitated. Patient appears stable for discharge on 10/23/2020, he was discharged home. Weight / BMI Weight Weight: 92.2 kg Body Mass Index (BMI) 27.0 ABG / Lab / Microbiology Data Result Diagrams: 10/22/20 05:40 10/22/20 05:40 Microbiology: Microbiology 10/22/20 00:15 Urine Culture - Preliminary Urine, Clean Catch Culture exhibits no growth. Microbiology 10/22/20 00:15 Urine, Clean Catch Urine Culture - Preliminary Culture exhibits no growth. D/C Instructions Discharge Diet: No restrictions Weight Bearing Status: Full weight bearing Meaningful Use Info Meaningful Use Diagnoses (Choose all that apply): None applicable Discharge Plan Admission Admit Date/Time: 10/22/20 01:09 Primary Reason for Your Visit: blood in urine Attending Provider: Delbert Abrams Primary Care Provider: Darryl Mckee Consulting Providers: Quang Haynes Discharge Orders/Prescriptions Prescriptions: New ciprofloxacin HCl [Cipro] 500 mg tablet 500 mg PO BID Qty: 10 RF: 0 Referrals / Follow Up: Quang Haynes MD [STAFF PHYSICIAN] - Within 2 Weeks Darryl Mckee DO [Primary Care Provider] - Within 2 Weeks Disposition Disposition (needs filled in before D/C Order can be placed): Home, Self Care Charges/Coding Visit Charges OBSV E&M: 58796 Observation care discharge
== END 2020-10-23 10:48 | disposition home or self-care (01) ==
LOC: ED 10-22 00:48 → PCU 10-22 01:22
PROVIDERS: Urology; Admitting Provider Family Medicine; Emergency Provider Emergency Medicine; PCP Student in an Organized Health Care Education/Training Program; Visit Provider Internal Medicine
PROC: 0TBB8ZX Excision of Bladder, Via Natural or Artificial Opening Endoscopic, Diagnostic (ICD-10-PCS; CPT 52630; principal; 2020-10-22 12:20)
DX: N40.1 Benign prostatic hyperplasia with lower urinary tract symptoms (principal); R31.0 Gross hematuria; R33.8 Other retention of urine; R35.0 Frequency of micturition; R03.0 Elevated blood-pressure reading, without diagnosis of hypertension; N41.1 Chronic prostatitis; Z87.448 Personal history of other diseases of urinary system; Z90.79 Acquired absence of other genital organ(s); N13.8 Other obstructive and reflux uropathy
CPT/HCPCS: 52630; 36415; 80048; 80053; 81001; 82962; 85025; 85610; 85730; 87086; 88305; 96361; 96365; 96366; 96375; 99218; 99251; 99283; J7030; A4216; G0378; G0463; J2405

== ENCOUNTER → 2020-11-02 | Outpatient (CLI) | payer MEDICARE, SELFPAY ==
[2020-10-22 08:38] VITALS: BMI 27.0
== END | disposition home or self-care (01) ==
LOC: LABSPEC 15:45
PROVIDERS: PCP Student in an Organized Health Care Education/Training Program; Visit Provider Nurse Practitioner Adult Health
DX: R30.9 Painful micturition, unspecified (principal)
CPT/HCPCS: 87086; 87088

== ENCOUNTER → 2021-03-03 09:03 | Outpatient (CLI) | payer MEDICARE, SELFPAY ==
[2021-03-03 10:50] LABS: Anion Gap 4 (5-15); BUN 15 mg/dL (7-18); BUN/Creat Ratio 17.2 RATIO (10-20); Chloride 108 mmol/L (98-107); Cholesterol 219 mg/dL (200); Creatinine, Serum 0.87 mg/dL (0.70-1.30); EST Glomerular Filtration Rate 90 mL/min (>60); Est Glom Filt Rate - Afr Amer 108 mL/min (>60); Glucose 100 mg/dL (74-106); High Density Lipoprotein 41 mg/dL; Potassium 4.1 mmol/L (3.5-5.1); Sodium Level 139 mmol/L (136-145); Triglycerides 148 mg/dL; Very Low Density Lipoprotein 30 mg/dL (5-40)
[2021-03-03 10:59] LABS: Hemoglobin A1c 5.9 % (3.8-5.6)
[2021-03-03 17:07] LABS: PSA,Total- Diagnostic 3.55 ng/mL (0.0-4.0)
== END ==
PROVIDERS: PCP Student in an Organized Health Care Education/Training Program; Referring Provider Student in an Organized Health Care Education/Training Program; Visit Provider Student in an Organized Health Care Education/Training Program
DX: R97.20 Elevated prostate specific antigen [PSA] (principal); Z13.6 Encounter for screening for cardiovascular disorders
CPT/HCPCS: 36415; 80048; 80061; 83036; 84153; G0103

== ENCOUNTER → 2021-03-09 09:32 | Outpatient (CLI) | payer MEDICARE, SELFPAY ==
--- NOTE | 2021-03-09 09:36 | BD_ITS ---
STUDY: DUAL ENERGY X-RAY ABSORPTIOMETRY / DXA REASON FOR EXAM: Male, 80 years old. M810. Osteoporosis. TECHNIQUE: Bone Mineral Density (BMD) measurements of lumbar spine and bilateral hips were obtained. COMPARISON: None. FINDINGS: Lumbar Spine (L1-L4): g/cm2 (1.142) / T-score (0.5) / Z-score (1.6) Findings are suggestive of normal bone density with a low fracture risk. Left Femur Total: g/cm2 (0.942) / T-score (-0.6) / Z-score (0.5) Left Femoral Neck: g/cm2 (0.696) / T-score (-1.7) / Z-score (-0.2) Right Femur Total: g/cm2 (0.924) / T-score (-0.7) / Z-score (0.3) Right Femoral Neck: g/cm2 (0.709) / T-score (-1.6) / Z-score (-0.1) BD/Dexa Bone Density Study IMPRESSION: The patient is considered osteopenic as outlined below according to World Ricky Organization (WHO) criteria with a moderate fracture risk. Reference Information: The T-score is the number of standard deviations above or below the standard which is normal for young adults at their peak bone mineral density. The World Health Organization (WHO) interprets the T-scores as follows: Above -1 Normal bone density Between -1 and -2.5 Osteopenia Equal to / or below -2.5 Osteoporosis As a practical clinical guideline, osteopenia may be graded as follows: Mild -1 through -1.5 Moderate -1.6 through -2.0 Severe -2.1 through -2.4 The Z-score is the number of standard deviations above or below age-matched controls. A Z-score of less than -1.5 would be considered abnormal. References: 1. NIH Osteoporosis and Related Bone Diseases www osteo.org 2. International Society for Clinical Densitometry www iscd.org 3. National Osteoporosis Foundation www nof.org Electronically Signed: Ministerio Varela MD at 14:02 EST , Service support ,
== END ==
PROVIDERS: PCP Student in an Organized Health Care Education/Training Program; Visit Provider Student in an Organized Health Care Education/Training Program
DX: Z13.820 Encounter for screening for osteoporosis (principal); M81.0 Age-related osteoporosis without current pathological fracture
CPT/HCPCS: 77080

== ENCOUNTER → 2021-04-20 15:21 | Outpatient (CLI) | payer MEDICARE, SELFPAY ==
[2021-04-20 18:24] LABS: Hemoglobin 14.8 g/dL (13.0-16.5); Mean Corp Hgb Conc 32.2 g/dL (32-36); Mean Corpuscular Hgb 28.2 pg (27.0-32.0); Mean Corpuscular Volume 87.6 fL (80-94); Mean Platelet Vol. 10.3 fl (6.2-12.0); Platelet Count 243 K/mm3 (150-450); RBC Distribution Width CV 13.9 % (11.6-14.6); RBC Distribution Width SD 45.1 fl (35.1-43.9); Red Blood Count 5.25 M/mm3 (4.6-6.2); White Blood Count 8.6 K/mm3 (4.4-11.0)
[2021-04-20 19:07] LABS: ALB/GLOB Ratio 0.9 RATIO (0.9-2.4); AST(SGOT) 21 U/L (15-37); Alanine Aminotransfer ALT/SGPT 34 U/L (16-61); Albumin, Serum 3.6 g/dL (3.2-5.0); Alkaline Phosphatase 89 U/L (45-117); Anion Gap 8 (5-15); BUN 20 mg/dL (7-18); BUN/Creat Ratio 19.2 RATIO (10-20); Chloride 108 mmol/L (98-107); Creatinine, Serum 1.04 mg/dL (0.70-1.30); EST Glomerular Filtration Rate 73 mL/min (>60); Est Glom Filt Rate - Afr Amer 88 mL/min (>60); Ferritin 143 ng/mL (26-388); Globulin 3.8 g/dL (2.2-4.2); Glucose 86 mg/dL (74-106); Iron 149 ug/dL (65-175); Magnesium 2.5 mg/dL (1.6-2.6); Potassium 4.2 mmol/L (3.5-5.1); Protein, Total 7.4 g/dL (6.4-8.2); Sodium Level 139 mmol/L (136-145); Thyroid Stim Hormone (TSH) 2.09 uIU/mL (0.358-3.74)
== END ==
PROVIDERS: PCP Student in an Organized Health Care Education/Training Program
DX: R25.8 Other abnormal involuntary movements (principal); D64.9 Anemia, unspecified
CPT/HCPCS: 36415; 80053; 82728; 83540; 83735; 84443; 85027

== ENCOUNTER → 2022-01-28 | Outpatient (CLI) | payer MEDICARE, SELFPAY ==
--- NOTE | 2022-01-28 13:29 | RAD_ITS ---
STUDY: X-RAY - PELVIS AND LEFT HIP REASON FOR EXAM: Male, 81 years old. HIP PAIN TECHNIQUE: 3 views of the pelvis and hip. COMPARISON: None. FINDINGS: There is a non-specific bowel gas pattern. Normal visualized soft tissue structures. Normal bilateral iliac wings, sacroiliac joints and visualized sacrum. Normal bilateral superior and inferior pubic rami. Normal pubic symphysis. Normal bilateral ischial tuberosities. Normal visualized femoral head. Normal acetabulum. Narrowed hip joint. RAD/HIP, UNI W/ Pelvis 2-3 Views IMPRESSION: Mild degenerative changes of left hip. No acute fracture of the hips or pelvis Electronically Signed: Jarrett Qureshi MD at 22:00 EDT ,
== END | disposition home or self-care (01) ==
PROVIDERS: PCP Nurse Practitioner Family; Referring Provider Nurse Practitioner Family; Visit Provider Nurse Practitioner Family
DX: M25.552 Pain in left hip (principal); G89.29 Other chronic pain
CPT/HCPCS: 73502

== ENCOUNTER → 2022-03-03 | Outpatient (CLI) | payer MEDICARE, SELFPAY ==
[2022-03-03 13:15] LABS: PSA,Total- Diagnostic 5.43 ng/mL (0.0-4.0)
== END | disposition home or self-care (01) ==
LOC: MTLAB 10:26
PROVIDERS: PCP Nurse Practitioner Family; Referring Provider Urology; Visit Provider Urology
DX: R97.20 Elevated prostate specific antigen [PSA] (principal)
CPT/HCPCS: 36415; 84153

== ENCOUNTER → 2022-03-04 | Outpatient (CLI) | payer MEDICARE, SELFPAY ==
[2022-03-04 10:40] LABS: ALB/GLOB Ratio 0.9 RATIO (0.9-2.4); AST(SGOT) 14 U/L (15-37); Alanine Aminotransfer ALT/SGPT 23 U/L (16-61); Albumin, Serum 3.5 g/dL (3.2-5.0); Alkaline Phosphatase 114 U/L (45-117); Anion Gap 5 (5-15); BUN 18 mg/dL (7-18); BUN/Creat Ratio 21.1 RATIO (10-20); Chloride 108 mmol/L (98-107); Cholesterol 213 mg/dL (200); Creatinine, Serum 0.86 mg/dL (0.70-1.30); EST Glomerular Filtration Rate 91 mL/min (>60); Est Glom Filt Rate - Afr Amer 110 mL/min (>60); Globulin 3.8 g/dL (2.2-4.2); Glucose 109 mg/dL (74-106); High Density Lipoprotein 48 mg/dL; Protein, Total 7.3 g/dL (6.4-8.2); Sodium Level 141 mmol/L (136-145); Triglycerides 98 mg/dL; Very Low Density Lipoprotein 20 mg/dL (5-40)
== END | disposition home or self-care (01) ==
PROVIDERS: PCP Family Medicine; Referring Provider Nurse Practitioner Family; Visit Provider Nurse Practitioner Family
DX: Z00.00 Encounter for general adult medical examination without abnormal findings (principal); Z13.1 Encounter for screening for diabetes mellitus; Z13.6 Encounter for screening for cardiovascular disorders; Z12.5 Encounter for screening for malignant neoplasm of prostate
CPT/HCPCS: 36415; 80053; 80061

== ENCOUNTER → 2022-12-30 | Outpatient (CLI) | payer MEDICARE, SELFPAY ==
[2022-12-30 12:34] LABS: Hemoglobin A1c 5.7 % (3.8-5.6)
[2022-12-30 12:46] LABS: AST(SGOT) 17 U/L (15-37); Alanine Aminotransfer ALT/SGPT 28 U/L (16-61); Albumin, Serum 3.6 g/dL (3.2-5.0); Alkaline Phosphatase 101 U/L (45-117); Anion Gap 3 (5-15); BUN 14 mg/dL (7-18); BUN/Creat Ratio 16.5 RATIO (10-20); Calcium,Total 8.8 mg/dL (8.5-10.1); Chloride 110 mmol/L (98-107); Cholesterol 222 mg/dL (200); Creatinine, Serum 0.85 mg/dL (0.70-1.30); EST Glomerular Filtration Rate 92 mL/min (>60); Est Glom Filt Rate - Afr Amer 111 mL/min (>60); Globulin 3.6 g/dL (2.2-4.2); Glucose 92 mg/dL (74-106); High Density Lipoprotein 43 mg/dL; PSA,Total - Annual Screen 4.37 ng/mL (0.00-4.00); Potassium 4.1 mmol/L (3.5-5.1); Protein, Total 7.2 g/dL (6.4-8.2); Sodium Level 139 mmol/L (136-145); Triglycerides 108 mg/dL; Very Low Density Lipoprotein 22 mg/dL (5-40)
== END | disposition home or self-care (01) ==
LOC: MTLAB 09:51
PROVIDERS: PCP Family Medicine; Referring Provider Nurse Practitioner Family; Visit Provider Nurse Practitioner Family
DX: Z13.1 Encounter for screening for diabetes mellitus (principal); Z13.6 Encounter for screening for cardiovascular disorders; Z12.5 Encounter for screening for malignant neoplasm of prostate
CPT/HCPCS: 36415; 80053; 80061; 83036; 84153; G0103

== ENCOUNTER 2023-10-04 07:43 | Emergency (ER) | payer MEDICARE, SELFPAY ==
[2023-10-04 07:44] VITALS: BP 189/93; PULSE 76; PULSE 79; RESP 16; TEMP 36; O2SAT 98; BMI 26.2
[2023-10-04 07:45] VITALS: BP 140/72; PULSE 84; RESP 17; TEMP 37.1
--- NOTE | 2023-10-04 08:10 | EX.ED.GUMALE ---
HPI History of Present Illness Chief Complaint: Complaint Narrative Narrative: 82-year-old male presents with urinary retention and discomfort in the suprapubic area from not being able to urinate. He relates history that a few years ago, he had bleeding in his bladder and will had surgery performed by Dr. Haynes. The bleeding had ceased, but he was in urinary retention at that time from clots. A few days ago, he states he was having difficulty urinating, states he pressed on his bladder and strain, and passed a clot. Since then, he has not had any hematuria. He last urinated before he went to bed last evening at around 11 PM, 9 hours ago. He awoke at 5 AM, approximately 3 hours ago, and is unable to urinate even with straining and pressing on his bladder. He does not take blood thinners. He is starting to have suprapubic discomfort and has the need to urinate but is unable to. He states he feels that there is something caught and that his urine is about to come out but there is something blocking. Although he states he has a history of slightly enlarged prostate, he does not take any medications. He states he saw his urologist last month and everything was checking out fine. [facility] Medical History History of hematuria BPH (benign prostatic hyperplasia) Prostate disorder Back strain Home Medications ?Medication ?Instructions ?Recorded ?Last Taken ?Type ciprofloxacin HCl 500 mg tablet 500 mg PO BID #10 tabs 10/23/20 Unknown Rx (Cipro) Allergy/AdvReac Type Severity Reaction Status Date / Time tetanus and diphtheria Allergy Swelling Verified 10/04/23 07:43 toxoids Surgical History History of back surgery S/P TURP Social History household members: spouse Smoking Status: Never smoker alcohol intake: current details: Rare EtOH intake. substance use type: does not use ROS ROS ED ROS Narrative Constitutional: No fever, no chills. HEENT: No sore throat. No neck pain. No loss of vision. No rhinorrhea. Cardiovascular: No chest pain. No palpitations. No pedal edema. Respiratory: No cough, no shortness of breath. Abdominal: Positive suprapubic discomfort/abdominal pain. No nausea. No vomiting. Genitourinary: No hematuria. Unable to urinate since 5 AM. Last urinated at 11 PM yesterday evening, approximately 9 hours ago. Musculoskeletal: No myalgias. No arthralgias. Neurologic: No headaches. No dizziness. No lightheadedness. Skin: No rash. No change in color. Psychiatric: No depression. No anxiety. EXAM Physical Exam Narrative Exam Narrative: Afebrile. Vital signs noted. HEENT: Normocephalic. Atraumatic. PERRL, EOMI. Neck soft and supple. No point tenderness or step off. Cardiovascular: Regular rate and rhythm. No murmurs, rubs, or gallops appreciated. Respiratory: No tachypnea. Lungs clear to auscultation bilaterally. Gastrointestinal: Abdomen soft, mild suprapubic tenderness/enlarged bladder, with normoactive bowel sounds. No rebound or guarding. Neurological: Awake. Alert. Nonfocal, nonlateralizing. Skin: No rash. Normal color. No pallor. Musculoskeletal: No pedal edema. Full range of motion extremities. Const Vital Signs: 10/04/23 07:44 10/04/23 07:44 10/04/23 07:45 Temperature 96.8 F L 98.7 F Temperature Source Temporal Temporal Pulse Rate 79 76 84 Respiratory Rate 16 16 17 Blood Pressure 189/93 H 189/93 H 140/72 H Blood Pressure Mean 125 125 94 Pulse Ox 98 98 Oxygen Delivery Method Room Air Room Air Room Air MDM MDM MDM Narrative Medical decision making narrative: I reviewed the patient's prior records, and x-ray in 2020 patient had a prostate resection performed. With suspicion of urinary retention secondary to hematuria, I ordered a three-way catheter and bladder irrigation. RN was unable to pass a three-way catheter and met a lot of resistance. She was unable to pass a regular larger [place] catheter as well. 16 Ug[place]an coud? was available, which was placed. Irrigation was attempted as there were initial clots, but he is draining a small amount of yellow to clear urine. Initial bladder scan showed approximately 650 mL of urine in the bladder prior to Rodriguez catheter placement. Over 30 irrigation attempted, she did meet more resistance. I decided to obtain lab work which I reviewed and he has normal white count of 7.0, hemoglobin 14.7 with normal platelet count of 181. Electrolyte panel is remarkable for chloride of 109 but he has normal BUN of 18 and creatinine normal at 0.88. CT of the abdomen and pelvis showed a decompressed bladder from the Rodriguez catheter placement. At this point in time, I discussed the patient with Dr. Haynes through his assistant center manager, it was felt that as long as the Rodriguez catheter is draining, that he would be able to be discharged. As there is no significant CT finding, I feel he can be discharged to follow up with urology for Rodriguez catheter removal. I explained at length with the patient the need for the Rodriguez catheter to remain in place. He will be given a Rodriguez leg bag. Urinalysis obtained and reviewed and is negative for infection, so I do not feel antibiotics are indicated. He will follow-up with urology. Return instructions to the emergency department were reviewed. Disposition is discharged in stable condition. History & Record Review Discussion w/independent historian: Patient Lab Data Attestation: I reviewed the patient's lab results. Labs: Laboratory Results - last 24 hr 10/04/23 10/04/23 09:25 10:35 WBC 7.0 RBC 4.96 Hgb 14.7 Hct 44.5 MCV 89.7 MCH 29.6 MCHC 33.0 RDW Std Deviation 44.5 H RDW Coeff of Klarissa 13.5 Plt Count 181 MPV 9.9 Immature Gran % (Auto) 0.300 Neut % (Auto) 75.6 H Lymph % (Auto) 12.0 L [place] % (Auto) 11.1 H Eos % (Auto) 0.6 Baso % (Auto) 0.4 Absolute Neuts (auto) 5.3 Absolute Lymphs (auto) 0.84 Nucleated RBC % 0 Sodium 136 Potassium 4.3 Chloride 109 H Carbon Dioxide 24.0 Anion Gap 3 L BUN 18 Creatinine 0.88 Estim Creat Clear Calc 64.72 Est GFR (MDRD) Af Amer 106 Est GFR (MDRD) Non-Af 88 BUN/Creatinine Ratio 20.4 H Glucose 115 H Calcium 9.2 Urine Color Yellow Urine Clarity Sl. Cloudy Urine pH 6.5 Ur Specific [place] 1.015 Urine Protein 30 H Urine Glucose (UA) Normal Urine Ketones Negative Urine Occult Blood 250 H Urine Nitrite Negative Urine Bilirubin Negative Urine Urobilinogen Normal Ur Leukocyte Esterase 25 H Urine RBC 50-100 SEEN Urine WBC 0-5 SEEN Ur Squamous Epith Cells 0-5 SEEN Urine Bacteria 0 SEEN Urine Mucus 0 SEEN Radiography Diagnostic Testing: Clinical Impression(s) from Imaging Studies Abdomen/Pelvis CT 10/04/23 09:18 IMPRESSION: Cholelithiasis. Negative examination for renal stone or hydronephrosis. Rodriguez catheter decompression of the bladder. Mildly enlarged prostate gland. Mild left scrotal hydrocele. Electronically Signed: Nisha Mcneill MD at 10:11 EDT , Discharge Plan Triage Chief Complaint: Complaint ED Provider: Ty Mcgarry Dx/Rx/DC Orders Clinical Impression: Urinary retention Instructions: ED Rodriguez Catheter, Care, ED Urinary Retention, Male Prescriptions: No Action ciprofloxacin HCl [Cipro] 500 mg tablet 500 mg PO BID Qty: 10 0RF Primary Care Provider: Maxi Cottrell Referrals: Maxi Cottrell DO [Primary Care Provider] - Quang Haynes MD [Med Staff - Active Staff] - 5-7 Days Activity Restrictions/Additional Instructions: Return with fever, leaking around Rodriguez catheter, catheter not draining, new or worsening symptoms. Call Dr. Haynes today for an appointment for Rodriguez catheter removal. Print Language: Chinese Disposition Disposition: Home, Self Care
--- NOTE | 2023-10-04 09:16 | NURSING ---
This RN attempted to insert a 22F 3-way franco, then attempted to insert a 16F franco with no success. Discussed with provider. This RN inserted a 16F coude franco with some resistance, attemted to manually irrigate; intermittently will flush however not patent. Provider aware and orders received.
--- NOTE | 2023-10-04 09:18 | CT_ITS ---
HISTORY: Hematuria. TECHNIQUE: Helically acquired images were obtained of the abdomen and pelvis without oral or IV contrast. A radiation dose optimization technique was used for this scan. 490 images. COMPARISON: US 02/10/2011. FINDINGS: LOWER CHEST: No acute consolidation in the lung bases. BOWEL: Bowel including appendix nondilated. No focal pericolonic inflammatory change. PERITONEUM: No significant free fluid. LIVER/SPLEEN/PANCREAS: Nonenlarged. GALLBLADDER/BILIARY TREE: Large calcified gallstone. KIDNEYS AND URETERS: No nephrolithiasis or obstructing ureteral calculus. ADRENAL GLANDS: No nodules. VESSELS: No abdominal aortic aneurysm. Mild atherosclerosis. PELVIC ORGANS: Rodriguez catheter decompression of the urinary bladder. 4.8 x 5.7 cm prostate gland. Mild left scrotal hydrocele. ABDOMINAL WALL: Fat-containing inguinal hernias. BONES: Intact. CT/Abdomen/Pelvis without Cont IMPRESSION: Cholelithiasis. Negative examination for renal stone or hydronephrosis. Rodriguez catheter decompression of the bladder. Mildly enlarged prostate gland. Mild left scrotal hydrocele. Electronically Signed: Nisha Mcneill MD at 10:11 EDT ,
[2023-10-04 09:30] LABS: Absolute Lymphocyte Count 0.84 X10^3/uL (0.83-4.51); Absolute Neutrophil Count 5.3 X10^3/uL (2.0-7.7); Basophil# 0.03 X10^3/uL; Basophil% 0.4 % (0-1); Eosinophil# 0.04 X10^3/uL; Eosinophils% 0.6 % (0-5); Hematocrit 44.5 % (40-54); Hemoglobin 14.7 g/dL (13.0-16.5); Lymphocyte # 0.84 X10^3/ul (0.83-4.51); Mean Corpuscular Hgb 29.6 pg (27.0-32.0); Mean Corpuscular Volume 89.7 fL (80-94); Mean Platelet Vol. 9.9 fl (6.2-12.0); Monocyte# 0.78 X10^3/uL; Monocyte% 11.1 % (0-10); NRBC Flagged by Analyzer 0 % (0-5); Neutrophil # 5.31 X10^3/uL (2.7-7.7); Neutrophil % 75.6 % (47-70); Platelet Count 181 K/mm3 (150-450); RBC Distribution Width CV 13.5 % (11.6-14.6); RBC Distribution Width SD 44.5 fl (35.1-43.9); Red Blood Count 4.96 M/mm3 (4.6-6.2)
[2023-10-04 09:43] VITALS: BP 140/64; PULSE 62; RESP 16; O2SAT 99
[2023-10-04 09:46] LABS: Anion Gap 3 (5-15); BUN 18 mg/dL (7-18); BUN/Creat Ratio 20.4 RATIO (10-20); Calcium,Total 9.2 mg/dL (8.5-10.1); Chloride 109 mmol/L (98-107); Creatinine, Serum 0.88 mg/dL (0.70-1.30); EST Glomerular Filtration Rate 88 mL/min (>60); Est Glom Filt Rate - Afr Amer 106 mL/min (>60); Estimated Creatinine Clearance 64.72 ml/min; Glucose 115 mg/dL (74-106); Potassium 4.3 mmol/L (3.5-5.1); Sodium Level 136 mmol/L (136-145)
[2023-10-04 10:42] LABS: Bacteria 0 SEEN /hpf (None Seen); Mucous, Urine 0 SEEN /hpf (<or=2+)
[2023-10-04 10:47] LABS: Color, Urine Yellow (Yellow); Glucose, Dipstick Normal (Normal); Ketone-Dipstick Negative (Negative); Leukocyte Esterase-Dipstick 25 /ul (Negative); Nitrite-Dipstick Negative (Negative); Occult Blood-Urine 250 /ul (Negative); Protein-Dipstick 30 mg/dl (Negative); Specific Gravity, Urine 1.015 (1.002-1.030); Urine Bilirubin Dipstick Negative (Negative); Urine Clarity Sl. Cloudy (Clear); Urine Urobilinogen Normal (Normal); Urine pH 6.5 (5.0 - 8.0)
[2023-10-04 10:57] LABS: Red Blood Cells-Urine 50-100 SEEN /hpf (0-5); White Blood Cells 0-5 SEEN /hpf (0-5)
[2023-10-04 10:58] LABS: Squamous Epithelial Cells - UA 0-5 SEEN /hpf (0-5)
[2023-10-04 11:32] VITALS: BP 180/91; PULSE 74; RESP 16; TEMP 37; O2SAT 100
== END 2023-10-04 11:33 | disposition home or self-care (01) ==
PROVIDERS: Emergency Provider Emergency Medicine; PCP Family Medicine; Visit Provider Emergency Medicine
DX: R33.9 Retention of urine, unspecified (principal)
CPT/HCPCS: 51702; 74176; 80048; 81001; 85025; 99283; A4216

== ENCOUNTER → 2024-01-08 | Outpatient (CLI) | payer MEDICARE, SELFPAY ==
[2024-01-08 15:04] LABS: Absolute Lymphocyte Count 1.45 X10^3/uL (0.83-4.51); Absolute Neutrophil Count 3.3 X10^3/uL (2.0-7.7); Basophil# 0.04 X10^3/uL; Basophil% 0.7 % (0-1); Eosinophil# 0.06 X10^3/uL; Eosinophils% 1.1 % (0-5); Hematocrit 47.1 % (40-54); Lymphocyte # 1.45 X10^3/ul (0.83-4.51); Lymphocyte % 25.9 % (19-41); Mean Corp Hgb Conc 31.8 g/dL (32-36); Mean Corpuscular Hgb 28.2 pg (27.0-32.0); Mean Corpuscular Volume 88.7 fL (80-94); Mean Platelet Vol. 10.8 fl (6.2-12.0); Monocyte# 0.73 X10^3/uL; Monocyte% 13.1 % (0-10); NRBC Flagged by Analyzer 0 % (0-5); Platelet Count 221 K/mm3 (150-450); RBC Distribution Width CV 13.7 % (11.6-14.6); RBC Distribution Width SD 44.4 fl (35.1-43.9); Red Blood Count 5.31 M/mm3 (4.6-6.2); White Blood Count 5.6 K/mm3 (4.4-11.0)
[2024-01-08 15:28] LABS: Hemoglobin A1c 5.6 % (3.8-5.6)
[2024-01-08 15:35] LABS: Microalbumin,Random Urine 35.8 mg/L (NO RANGE EST.)
[2024-01-08 15:45] LABS: ALB/GLOB Ratio 1.1 RATIO (0.9-2.4); AST(SGOT) 17 U/L (15-37); Alanine Aminotransfer ALT/SGPT 21 U/L (16-61); Albumin, Serum 3.9 g/dL (3.2-5.0); Alkaline Phosphatase 97 U/L (45-117); Anion Gap 4 (5-15); BUN 17 mg/dL (7-18); BUN/Creat Ratio 20.9 RATIO (10-20); Calcium,Total 9.3 mg/dL (8.5-10.1); Chloride 107 mmol/L (98-107); Cholesterol 205 mg/dL (200); Creatinine, Serum 0.81 mg/dL (0.70-1.30); EST Glomerular Filtration Rate 96 mL/min (>60); Est Glom Filt Rate - Afr Amer 117 mL/min (>60); Globulin 3.7 g/dL (2.2-4.2); Glucose 103 mg/dL (74-106); High Density Lipoprotein 58 mg/dL; Potassium 4.2 mmol/L (3.5-5.1); Protein, Total 7.6 g/dL (6.4-8.2); Sodium Level 138 mmol/L (136-145); Triglycerides 87 mg/dL; Very Low Density Lipoprotein 17 mg/dL (5-40)
== END | disposition home or self-care (01) ==
LOC: MTLAB 12:51
PROVIDERS: PCP Internal Medicine; Referring Provider Internal Medicine; Visit Provider Internal Medicine
DX: R73.09 Other abnormal glucose (principal); E78.5 Hyperlipidemia, unspecified
CPT/HCPCS: 36415; 80053; 80061; 82043; 82570; 83036; 84443; 85025

== ENCOUNTER → 2025-01-06 | Outpatient (CLI) | payer MEDICARE, SELFPAY ==
[2025-01-06 17:40] LABS: Hematocrit 40.1 % (40-54); Hemoglobin 13.3 g/dL (13.0-16.5); Immature Granulocytes Count 0.010 X10^3/uL (0.0-0.0); Mean Corp Hgb Conc 33.2 g/dL (32-36); Mean Corpuscular Volume 88.5 fL (80-94); Mean Platelet Vol. 10.5 fl (6.2-12.0); NRBC Flagged by Analyzer 0 % (0-5); Platelet Count 174 K/mm3 (150-450); RBC Distribution Width CV 13.2 % (11.6-14.6); RBC Distribution Width SD 43.4 fl (35.1-43.9); Red Blood Count 4.53 M/mm3 (4.6-6.2); White Blood Count 5.1 K/mm3 (4.4-11.0)
[2025-01-06 19:07] LABS: FOLATES,SERUM (FOLIC ACID) 12.20 ng/mL (4.60-34.80)
[2025-01-06 19:43] LABS: AST(SGOT) 18 U/L (<=37); Alanine Aminotransfer ALT/SGPT 14 U/L (<=46); Albumin, Serum 4.1 g/dL (3.4-4.8); Alkaline Phosphatase 93 U/L (40-129); Anion Gap 10 (5-15); BUN 19 mg/dL (4-19); BUN/Creat Ratio 23.7 RATIO (10-20); CPK Total, Creatine Kinase 83 U/L (24-195); Calcium,Total 9.2 mg/dL (7.6-11.0); Carbon Dioxide 23.0 mmol/L (21.0-32.0); Chloride 108 mmol/L (98-108); Globulin 2.8 g/dL (2.2-4.2); Glucose 86 mg/dL (70-99); Magnesium 2.3 mg/dL (1.5-2.2); Potassium 4.2 mmol/L (3.3-5.1); Vitamin B12 209 pg/mL (180-914); Vitamin D,25 Hydroxy 56.2 ng/mL (30-100)
== END | disposition home or self-care (01) ==
LOC: MTLAB 15:20
PROVIDERS: PCP Internal Medicine; Referring Provider Nurse Practitioner Family; Visit Provider Nurse Practitioner Family
DX: R25.2 Cramp and spasm (principal)
CPT/HCPCS: 36415; 80053; 82306; 82550; 82607; 82746; 83735; 85025